=== PATIENT | male | born 1970 | race Caucasian/White ===

== ENCOUNTER → 2025-01-24 | Outpatient (CLI) | payer SELFPAY, OTHER ==
--- NOTE | 2025-01-24 07:22 | MRI_ITS ---
PROCEDURE: UPPER EXT JOINT ONLY(ROUTINE) REASON FOR EXAM: Pain. Positive drop arm test. Fall. TECHNIQUE: MRI of the right shoulder without contrast. COMPARISON: Right shoulder series of 12/22/2024. FINDINGS Examination somewhat limited by obliquity of images. [id number] right acromioclavicular joint degenerative changes are seen, with partial joint narrowing noted. The right glenohumeral joint demonstrates mild degenerative changes. A small right glenohumeral joint effusion is seen. Complete disruption of the supraspinatus tendon is seen, with severe retraction. Probable complete disruption of the infraspinatus tendon is also noted. Marked tendon retraction of at least majority of the tendon is noted. The teres minor tendon appears intact, as does the subscapularis tendon. No acute osseous signal changes are seen. The long head of the biceps tendon appears intact. No glenoid labral tear is identified. MRI/Upper Ext Joint Only(Routine) IMPRESSION: 1. Complete disruption of the supraspinatus tendon. 2. Complete versus near-complete disruption of the infraspinatus tendon. 3. Degenerative changes as described. 4. Glenohumeral joint effusion. Reading Location: [id number]
--- NOTE | 2025-01-24 07:37 | RAD_ITS ---
PROCEDURE: ORBITS FOR FOREIGN BODY REASON FOR EXAM: Eval for foreign body. TECHNIQUE: 2 view(s) of the orbits. COMPARISON: None. FINDINGS: No evidence of displaced orbit fracture. No radiopaque foreign body. Visualized paranasal sinuses appear clear. Dental fillings are identified. RAD/Orbits for Foreign Body IMPRESSION: Dental fillings otherwise negative orbit x-rays. Reading Location: [id number]
== END | disposition home or self-care (01) ==
PROVIDERS: Referring Provider Orthopaedic Surgery Sports Medicine; Visit Provider Orthopaedic Surgery Sports Medicine
DX: M25.511 Pain in right shoulder (principal)
CPT/HCPCS: 70030; 73221

== ENCOUNTER 2025-03-02 09:31 | Day surgery (SDC) | payer SELFPAY, OTHER ==
[2025-03-02] VITALS (9 sets, daily range): BP systolic 98–111; BP diastolic 39–83; PULSE 54–71; RESP 12–18; TEMP 36.1–36.7; O2SAT 97–100; BMI 25.7
--- NOTE | 2025-03-02 09:52 | EKG12_ITS ---
Test Reason : PREOP Blood Pressure : */* mmHG Vent. Rate : 55 BPM Atrial Rate : 55 BPM P-R Int : 208 ms QRS Dur : 76 ms QT Int : 388 ms P-R-T Axes : 68 53 48 degrees QTcB Int : 371 ms Sinus bradycardia Otherwise normal ECG No previous ECGs available Confirmed by Ward Billings ([id number]), assistant production editor PERLA MIGUEL ([id number]) on 03/05/2025 1:24:41 PM Referred By: Marky Hoyt Confirmed By: Ward Billings
[2025-03-02] MEDS: 0.9% Normal Saline (1000mL) 1,000 ML 15 ML IV (10:17)
--- NOTE | 2025-03-02 10:20 | PCM.PRE.AN2 ---
ASA Classification* ASA Classification ASA Classification: 2 Assessment & Plan Anesthesia* Anesthesia Assessment Anesthesia Assessment: Discussed sedation and/or anesthesia options, risks, benefits, and alternatives with patient/parents/legal guardian/POA. Questions invited. The patient/parents/legal guardian/POA seems to understand and agrees to proceed with anesthesia plan. Reviewed the physical assessment, medical history, allergy history and patient home medications list prior to surgery/procedure/anesthetic and documented any changes. Performed airway and anesthesia risk assessments. 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 When Was Last Pacemaker Check QUESTION #4 FULL TEXT: You/Your Family Experience fever (hyperthermia) with Anesthesia Last Oral Intake Last Oral intake: Last Oral Intake NPO since 21:00 03/02/25 10:09 Meds taken in AM with sips of No 03/02/25 10:09 water? Meds patient instructed to take am of surgery PONV PONV - senior quality control inspector: PONV - senior quality control inspector Female No 02/22/25 13:16 HX of Motion Sickness Yes 02/22/25 13:16 HX of N/V After Surgery No 02/22/25 13:16 Non-Smoker Yes 02/22/25 13:16 Duration of Surgery greater Yes 02/22/25 13:16 than 60 minutes Number of Risk Factors 3 02/22/25 13:16 PONV Score Moderate Risk 02/22/25 13:16 Height & Weight Height & Weight: Anesthesia: Height & Weight Height 5 ft 9 in 03/02/25 10:09 Weight: 79.2 kg 03/02/25 10:09 Body Mass Index (BMI) 25.7 03/02/25 10:09 Respiratory Assessment Respiratory Assessment - senior quality control inspector: Respiratory Tract Infection Hx - senior quality control inspector Hx Respiratory Tract Infection No 02/22/25 13:16 STOP Sleep Apnea STOP Sleep Apnea - senior quality control inspector: STOP Sleep Apnea - senior quality control inspector Hx Hypertension No 02/22/25 13:16 Hx Sleep Apnea No 02/22/25 13:16 CPAP BIPAP Do you snore loudly (louder No 02/22/25 13:16 than talking or can be heard Do you often feel tired/ No 02/22/25 13:16 fatigued/ sleepy during daytime? Has anyone observed you stop No 02/22/25 13:16 breathing during sleep? STOP Results Negative 02/22/25 13:16 QUESTION #5 FULL TEXT : Do you snore loudly (louder than talking or can be heard through closed doors)? 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 Specify any problems Hx of Preganancy in last 3 N/A 02/22/25 13:16 Months Nurse Filling Out Transfusion VCHRISTIN 02/22/25 13:16 & Questions: Date: 02/22/25 02/22/25 13:16 Time: 13:17 02/22/25 13:16 Patient unable to answer at this time (ie. confused, unrespo /Reproduction History /Reproductive History - senior quality control inspector: /Reproductive Hx- senior quality control inspector Hx Now Gestational Age (in weeks): EDC: Hx Hx Para Hx Section SAB Active Medications Active Medications: Current Medications Generic Name Dose Route Start Last Admin Trade Name Freq PRN Reason Stop Dose Admin Cefazolin Sodium 2 gm/ N/A 20 mls @ 400 mls/hr 03/02/25 11:30 IV 03/02/25 11:32 X1 ONE Sodium Chloride 1,000 mls @ 15 mls/hr 03/02/25 10:20 03/02/25 10:17 IV 15 mls/hr .Q48H EMERSON Administration PFSH Medical History Wears glasses Non-smoker Right rotator cuff tear Right shoulder pain Home Medications ?Medication ?Instructions ?Recorded ?Last Taken ?Type cyanocobalamin (vitamin B-12) 1,000 mcg PO QDAY 12/22/24 03/01/25 History 1,000 mcg capsule multivitamin,tx-minerals 1 cap PO QODAY 12/22/24 03/01/25 History Allergy/AdvReac Type Severity Reaction Status Date / Time No Known Allergies Allergy Verified 03/02/25 10:00 Family History Father Diabetes Brother Diabetes Surgical History Hx of colonoscopy Social History household members: spouse Smoking Status: Never smoker alcohol intake: never substance use type: does not use what type of physical activity do you participate in: bicycling frequency: 5-6 times per week do you feel safe at home: Yes Review of Systems (Anesthesia) ROS Narrative System reviewed and no additional complaints, except as documented.
--- NOTE | 2025-03-02 11:09 | PCM.HP.STD ---
HPI - General HPI Narrative ABELINO OAKLEY, is a 54 M who presents for right shoulder arthroscopy, subacromial decompression, rotator cuff repair. no change to h and p. rab, post op instructions, narcotic counselling done. right shoulder marked. ok to proceed. plan for a block. MR#: [id number] Acct: [id number] Name: ABELINO OAKLEY Rep #: [id number] : 1970 Provider: Dr. Marky Hoyt MD Age/Sex: 54/M Location: [facility] Status: Signed Intake Vital Signs 12/22/2506:55 Height 5 ft 10 in Weight: 180 lb BMI 25.8 Intake Visit Reasons: RIGHT SHOULDER Chief Complaint: mri review right shoulder Accompanied by: Self Is patient in pain?: No Allergies No Known Allergies Allergy (Verified 01/30/25 08:32) Medications ?Medication ?Instructions ?Recorded ?Confirmed ?Type cyanocobalamin (vitamin B-12) 1,000 mcg PO QDAY 12/22/24 01/30/25 History 1,000 mcg capsule multivitamin,tx-minerals 1 cap PO QDAY 12/22/24 01/30/25 History PFSH Medical History (Updated 01/30/25 @ 08:07 by Marky Hoyt MD) Right rotator cuff tear Right shoulder pain Family History (Updated 12/22/24 @ 07:55 by Daya Patel) Father DiabetesBrother Diabetes Social History (Updated 12/22/24 @ 07:56 by Daya Patel) household members: spouse Smoking Status: Never smoker alcohol intake: never substance use type: does not use what type of physical activity do you participate in: bicycling frequency: 5-6 times per week do you feel safe at home: Yes HPI RIGHT SHOULDER Details: This documentation accurately reflects the service provided and the decisions made by me, Dr. Marky Hoyt MD 01/30/25 0807. Part of today?s visit was documented by [ ], acting as scribe. ABELINO OAKLEY is a 54 year old M here today for FU R shoulder MRI, pain after a fall. Supplemental Info [facility] Imaging Services [address], [place] [id number] Upper Ext Joint Only(Routine) MR#: [id number] Acct: [id number] Name: ABEILNO OAKLEY Rep #: [id number] : 1970 M 54 From: Rui Rivera MD PCP: Care Physician,No Primary Status: REG CLI Study: Upper Ext Joint Only(Routine) Date of Exam: 01/24/25 Exam# [id number] Ordering Dr: Marky Hoyt MD PROCEDURE: UPPER EXT JOINT ONLY(ROUTINE) REASON FOR EXAM: Pain. Positive drop arm test. Fall. TECHNIQUE: MRI of the right shoulder without contrast. COMPARISON: Right shoulder series of 12/22/2024. FINDINGS Examination somewhat limited by obliquity of images. Gpij-ms-tqoicquc right acromioclavicular joint degenerative changes are seen, with partial joint narrowing noted. The right glenohumeral joint demonstrates mild degenerative changes. A small right glenohumeral joint effusion is seen. Complete disruption of the supraspinatus tendon is seen, with severe retraction. Probable complete disruption of the infraspinatus tendon is also noted. Marked tendon retraction of at least majority of the tendon is noted. The teres minor tendon appears intact, as does the subscapularis tendon. No acute osseous signal changes are seen. The long head of the biceps tendon appears intact. No glenoid labral tear is identified. MRI/Upper Ext Joint Only(Routine) IMPRESSION: 1. Complete disruption of the supraspinatus tendon. 2. Complete versus near-complete disruption of the infraspinatus tendon. 3. Degenerative changes as described. 4. Glenohumeral joint effusion. Reading Location: [address] I independently reviewed the imaging. Concur with radiologist report. Coding Level of Care Code Off vis,est,level 3 Diagnoses Right shoulder pain M25.511 Right rotator cuff tear M75.101 Assessment and Plan Assessment and Plan (1) Right shoulder pain: Status: Acute Plan: 54-year-old man with a right shoulder full-thickness tear of the rotator cuff tendons supraspinatus and infraspinatus this appears to be an acute tear would be recommended to be fixed on an urgent timeline. Risks of not fixing this would be included continued weakness retraction of the tendon difficulty repairing this in the future muscle atrophy and other problems about the shoulder. Surgery has its own set of risks and complications that. Patient understands wishes to go ahead with the right shoulder arthroscopy, subacromial decompression, rotator cuff repair. Pros and cons risks and benefits were discussed with the patient including but not limited to infection, pain, stiffness, bleeding, damage to surrounding structures, neurovascular injury, recurrence or retear, failure or wear of hardware or fixation, instability, fracture, deep vein thrombosis and pulmonary embolism, anesthetic risks, , patient dissatisfaction, need for further surgery and other risks. Patient understood and wished to proceed with surgery, and signed the informed consent documentation. (2) Right rotator cuff tear: Status: Acute Ortho Exam General General: Yes no acute distress Neurologic: Yes alert and Yes oriented x3 Psychologic: Yes reasonable and appropriate [facility] Medical History Wears glasses Non-smoker Right rotator cuff tear Right shoulder pain Home Medications ?Medication ?Instructions ?Recorded ?Last Taken ?Type cyanocobalamin (vitamin B-12) 1,000 mcg PO QDAY 12/22/24 03/01/25 History 1,000 mcg capsule multivitamin,tx-minerals 1 cap PO QODAY 12/22/24 03/01/25 History Allergy/AdvReac Type Severity Reaction Status Date / Time No Known Allergies Allergy Verified 03/02/25 10:00 Family History Father Diabetes Brother Diabetes Surgical History Hx of colonoscopy Social History household members: spouse Smoking Status: Never smoker alcohol intake: never substance use type: does not use what type of physical activity do you participate in: bicycling frequency: 5-6 times per week do you feel safe at home: Yes Vital Signs Vital Signs Vital Signs: 03/02/25 10:09 03/02/25 10:09 03/02/25 10:21 Temperature 97.3 F L 97.3 F L Temperature Source Temporal Pulse Rate 62 62 Respiratory Rate 16 16 Respiratory Pattern Normal Blood Pressure 111/81 H 111/81 H Blood Pressure Mean 91 Blood Pressure Source Monitor Blood Pressure Position Semi-Fowlers Blood Pressure Location Left Arm Pulse Ox 100 100 Oxygen Delivery Method Room Air Weight Weight: 174 lb 9.698 oz Body Mass Index (BMI) 25.7
[2025-03-02] MEDS: Cefazolin 2 GM in Syringe IV (11:42)
[2025-03-02] MEDS: Epinephrine (1 mg/ml) 1 MG/ML VIAL (11:50)
--- NOTE | 2025-03-02 13:08 | OP.PCM_ITS ---
Problems Associated Problem List Diagnoses (1) Right rotator cuff tear: (2) Right shoulder pain: (3) Superior labrum lykgycbd-rr-rvqffvqcd (SLAP) tear of right shoulder: (4) Full thickness tear of right subscapularis tendon: Procedures Musculoskeletal [id number]: Other Procedure See Report Operative Report (Standard) Operative Information Date of Procedure: 03/02/25 Pre-Operative Diagnosis: Right shoulder impingement syndrome, rotator cuff tear Post-Operative Diagnosis: Right shoulder impingement syndrome, rotator cuff tear, subscapularis tear, SLAP tear Surgery/Procedure Performed: Right shoulder arthroscopy, subacromial decompression, rotator cuff repair, subscapularis repair, biceps tenodesis supplemental manager: Yes Turbine Assembler: edil Tasks completed by airline pilot/first officer: Retracting Additional habilitation assistant?: No Type of Anesthesia: Block,Regional and General RN Documented Start/Stop Times: Operation Date: 03/02/25 11:30 Case Time Into Pre-Op 03/02/25 10:00 Anesthesia Start 03/02/25 11:28 Into Room 03/02/25 11:28 Out of Pre-Op 03/02/25 11:30 Procedure Start 03/02/25 11:50 Procedure Start Time: 11:50 Procedure Stop Time: 13:14 Select all DRAINS/GRAFTS/IMPLANTS that apply: Implanted device Implanted device details: Arthrex anchors Arthrex biceps tension tight button Estimated Blood Loss: 50 Specimen collected: Yes Description of specimen(s) removed: long head biceps Description of surgery: Patient brought to the operating room theater. Placed supine on the table. 2 g IV Ancef ministered prior to the start of the procedure. General anesthesia induced. Patient transferred right side up lateral decubitus positioner. Beanbag used axillary roll placed. SCDs on the legs. All bony prominences padded. Upper extremity prepped and draped in the usual fashion with chlorhexidine-based prep solution allowing over 3 minutes drying time prior to draping. Arm in 10 pounds of traction with 40 degrees of abduction. Preoperative timeout performed confirm the site patient and the surgery. Began by inserting the arthroscope into the intra-articular portion of the shoulder through a standard posterior arthroscopy portal. Cartilage on the glenoid and humeral head appeared normal. Biceps was subluxed medial to the groove. There was a tear in the subscapularis full-thickness tear with a, sign as well as a full-thickness tear of the supra and infraspinatus with retraction to the level of the mid joint. Next I inserted the arthroscope at this time. I performed a bursectomy. I performed a subacromial decompression using a high-speed judy to 3 mm down to flat margins. Identified the cuff tissue. I assessed its mobility. This was mobile to about the mid aspect of the footprint. I released any bursitis and scar tissue. I performed an intra-articular biceps tenotomy to plan for later tenodesis given the subscapularis tear and subluxation of the biceps with partial tearing at the upper insertion point of the biceps indicating a SLAP lesion. Then I developed the rotator interval which was quite scarred in. Identified the comma tissue. I put 2 fiber link Arthrex sutures in this and then attached it to the lesser tuberosity at the top of the groove using an Arthrex 4.75 mm swivel lock anchor. This normalized the appearance of a crescent shaped rotator cuff tear. I prepared the tuberosity removing any remaining soft tissue as well as using the Arthrex power pick to stimulate healing at the attachment site. I placed 3 Arthrex RC 2.6mm all suture knotless fiber tack anchors at the articular margin. I removed the stay sutures. I passed the fiber tape sutures from inferior to superior through the cuff tissue. I then cut at the swedge. I then crisscrossed the sutures and inserted 3 suture limbs, 1 from each anchor, into a swivel lock anchor anteriorly and a swivel lock posteriorly. These were both 4.75 mm biocomposite type anchors. This achieved good compression and the repair of the footprint. All stay sutures were removed and the Sutures cut short. Next I turned my attention to performing a biceps tenodesis. I made a small 1.5 inch incision centered over the upper proximal medial aspect of the humerus overlying the long head of the biceps tendon. I carried dissection down through skin and subcutaneous tissue achieved meticulous hemostasis. Identified long head of the biceps tendon delivered this through the incision and shorten the tendon. I used the Arthrex tension tight button system with the braided loop suture, passed around the tendon and locked, and then passed the suture just distal to the lock from superficial to deep. I then drilled a unicortical hole irrigated the bone dust at the appropriate area just distal to the pectoralis major insertion. I then inserted the button, tensioned the suture limbs and cut the suture short. First button left intra-cortical as the sutures tore, so had to re-do with second implant. This achieved good tension and compression of the biceps tendon for unicortical onlay repair. Wound thoroughly irrigated subcutaneous tissue closed with 2-0 Vicryl sutures and skin with 3-0 Monocryl. Skin cleaned with wet dry dressing followed by application of Steri-Strips Adaptic 4 x 4 gauze ABD dressing cloth tape and an abduction pillow sling. Patient woken up from general anesthetic transferred off the operating table taken postanesthetic area in stable condition. All sponge needle instrument counts were correct no complications plan for the patient gentle pendulum exercises discharged home according to the surgery patient. Follow-up in the office within 2 weeks time. CPT 05593, 20379, 43719, modifier 22 for complexity large 3 tendon repair Surgical Findings: as above Complications Complications: No Admit VTE Documentation VTE Present on Admission: No VTE Mechan Device Prophylaxis: SCD's VTE Pharm Prophylaxis ordered?: No Reason prophylaxis not ordered: Treatment Not Indicated
--- NOTE | 2025-03-02 13:22 | DCINST_ITS ---
Discharge Instructions Diet Discharge Diet: No restrictions Activity Ice area for (Minutes): 10 Lifting Restrictions: no lifting, ok to remove sling at rest, pendulums 4x/day Additional Activity Instructions:: no lifting over 1 pound, ok for gentle elbow hand wrist. Dressing / Incision Call your doctor if your incision/area has: Continuous Slow Oozing, Sudden Increased Bleeding, Increased Pain/ Swelling, Increased Redness, Foul Smelling Discharge and Swelling at the incision site Call your doctor if you observe: Fever of 101 or Higher, Coldness, Increased Pain and Numbness or Tingling Change Dressing in: 2 days Cleanse incision/area with: Do not get Incision Wet Additional Dressing/Incision Instructions:: keep incisions covered Follow Up Care Please Follow Up With: Marky Hoyt MD When: within 2 weeks Test Results: Test results from this visit will be discussed in further detail at your follow- up appointment, if applicable. Discharge Plan Admission Attending Provider: Marky Hoyt Primary Care Provider: Marissa Yan Instructions Patient Instructions: After Shoulder Arthroscopy Print Language: Kiswahili Discharge Orders/Prescriptions Prescriptions: New oxycodone-acetaminophen [Percocet] 5-325 mg tablet 1 tab PO Q4H MDD 6 PRN (Reason: pain) 5 Days Qty: 30 0RF No Action cyanocobalamin (vitamin B-12) 1,000 mcg capsule 1,000 mcg PO QDAY multivitamin,tx-minerals Capsule 1 cap PO QODAY Referrals / Follow Up: Marissa Yan MD [Primary Care Provider] - Disposition Disposition (needs filled in before D/C Order can be placed): Home, Self Care
--- NOTE | 2025-03-02 13:30 | PCM.POST.ANE ---
Anesthesia: Postop Eval I Current Vital Signs Temperature: 97 F Pulse Rate: 66 Blood Pressure: 98/83 Respiratory Rate: 16 Pulse Ox: 99 Oxygen Delivery Method: Room Air Assessment Airway patent: Yes Spontaneous unlabored respirations: Yes Mental status: Awake nausea: No Vomiting: No Anesthesia Complication: No Fluid Hydration Crystalloid volume administer (ml): 1,200 Total IV fluid infused: 1,200 Progress Note Anesthesia document: Postop Eval 1 completed: Yes
--- NOTE | 2025-03-02 13:55 | POSTOPAN2_ITS ---
Anesthesia Postop Eval I Sum Postop Eval Completion status Anesthesia document: Postop Eval 1 completed: Yes Anesthesia Postop Eval I Summary Anesthesia Postop Eval I Summary: Anesthesia Postop Eval I: Assessment Summary Airway patent Yes 03/02/25 13:30 [email or web address] [email or web address].[email or web address] Spontaneous unlabored Yes 03/02/25 13:30 [email or web address] RIBBON [email or web address].TNES respirations Mental status Awake 03/02/25 13:30 [email or web address] RIBBON WINDER.TNES nausea No 03/02/25 13:30 [email or web address] RIBBON [email or web address].TNES Vomiting No 03/02/25 13:30 [email or web address] RIBBON [email or web address].TNES Anesthesia Postop Eval I: Fluid Summary Crystalloid volume administer 1,200 03/02/25 13:30 [email or web address] RIBBON [email or web address].TNES (ml) Colloids volume administered ( ml) Blood Product volume administered (ml) Total IV fluid infused 1,200 03/02/25 13:30 [email or web address] RIBBON [email or web address].TNES Anesthesia Postop Eval I: Summary Notes Anesthesia Complication No 03/02/25 13:30 [email or web address] [email or web address].TNES Anesthesia Complication Comment: Post-operative progress note Anesthesia: Postop Eval II Evaluation Mental status: Awake Pain Level: 0 nausea: No Vomiting: No
--- NOTE | 2025-03-02 13:55 | PCM.POSTANE2 ---
Anesthesia Postop Eval I Sum Postop Eval Completion status Anesthesia document: Postop Eval 1 completed: Yes Anesthesia Postop Eval I Summary Anesthesia Postop Eval I Summary: Anesthesia Postop Eval I: Assessment Summary Airway patent Yes 03/02/25 13:30 [email or web address] Spontaneous unlabored Yes 03/02/25 13:30 [email or web address] respirations Mental status Awake 03/02/25 13:30 [email or web address] nausea No 03/02/25 13:30 [email or web address] Vomiting No 03/02/25 13:30 [email or web address] Anesthesia Postop Eval I: Fluid Summary Crystalloid volume administer 1,200 03/02/25 13:30 [email or web address] (ml) Colloids volume administered ( ml) Blood Product volume administered (ml) Total IV fluid infused 1,200 03/02/25 13:30 [email or web address] Anesthesia Postop Eval I: Summary Notes Anesthesia Complication No 03/02/25 13:30 [email or web address] Anesthesia Complication Comment: Post-operative progress note Anesthesia: Postop Eval II Evaluation Mental status: Awake Pain Level: 0 nausea: No Vomiting: No
== END 2025-03-02 15:46 | disposition home or self-care (01) ==
PROVIDERS: PCP Family Medicine; Referring Provider Orthopaedic Surgery Sports Medicine; Visit Provider Orthopaedic Surgery Sports Medicine
PROC: (CPT 29805; principal; 2025-03-02 11:10)
DX: S46.011A Strain of muscle(s) and tendon(s) of the rotator cuff of right shoulder, initial encounter (principal); S46.811A Strain of other muscles, fascia and tendons at shoulder and upper arm level, right arm, initial encounter; S43.431A Superior glenoid labrum lesion of right shoulder, initial encounter; W19.XXXA Unspecified fall, initial encounter
CPT/HCPCS: 29827; 29826; 29828; 01630; 64415; 93005; C1713; J2405